=== PATIENT | male | born 1970 | race Hispanic/Latino ===

== ENCOUNTER 2022-11-10 13:46 | Inpatient (IN) | payer OTHER ==
[~2022-11-10] VITALS: Ht 167.6 cm; Wt 84.8 kg
[2022-11-10 14:04] LABS: BASOPHILS % (AUTO) 0.3 % (0.0-5.0); EOSINOPHILS % (AUTO) 0.3 % (0.0-8.0); HEMATOCRIT 45.2 % (42-54); MEAN CORPUSCULAR HEMOGLOBIN 30.7 pg (27.0-33.0); MEAN CORPUSCULAR HGB CONC 34.7 g/dL (32.0-36.0); MEAN CORPUSCULAR VOLUME 88.5 fL (79-99); MONOCYTES % (AUTO) 5.4 % (3.0-13.0); NEUTROPHILS % (AUTO) 83.7 % (40.0-77.0); PLATELET COUNT (AUTO) 218 K/uL (130-400); RED BLOOD CELL COUNT(AUTO) 5.11 MIL/uL (4.50-6.20); RED CELL DISTRIBUTION WIDTH 12.7 % (11.0-15.5); WHITE BLOOD COUNT (AUTO) 11.8 K/uL (4.8-10.8)
[2022-11-10 14:10] LABS: APPEARANCE,URINE CLOUDY (CLEAR); BILIRUBIN,URINE NEGATIVE (NEGATIVE); COLOR,URINE LIGHT-YELLOW (YELLOW); GLUCOSE, URINE (UA) 150 mg/dL (NEGATIVE); KETONES,URINE 5 mg/dL (NEGATIVE); LEUKOCYTE ESTERASE ,URINE NEGATIVE Leu/uL (NEGATIVE); NITRATE,URINE NEGATIVE (NEGATIVE); OCCULT BLOOD,URINE NEGATIVE (NEGATIVE); PH,URINE 7.5 (5.0-8.0); PROTEIN,URINE 10 mg/dL (NEGATIVE); UROBILINOGEN,URINE 0.2 mg/dL (0.2-1.0)
[2022-11-10 14:21] LABS: CREATININE 1.1 mg/dL (0.5-1.5); POTASSIUM 4.1 mmol/L (3.5-5.1)
[2022-11-10 14:26] LABS: ALBUMIN 4.2 g/dL (3.5-5.0); TOTAL PROTEIN, SERUM 7.4 g/dL (6.0-8.3)
[2022-11-10 14:38] LABS: BACTERIA,URINE RARE /HPF (None Seen); MUCUS,URINE RARE LPF (None Seen); RBC,URINE 0-1 /HPF (0-1); SQUAMOUS EPITHELIAL CELL,UR RARE /HPF (0-2); WBC,URINE 0-1 /HPF (0-1)
[2022-11-10] MEDS ORDERED: ONDANSETRON 4MG INJ IVP ONE (15:00)
[2022-11-10] MEDS ORDERED: MORPHINE 4 MG SYG IVP ONE (15:00)
[2022-11-10] MEDS ORDERED: 0.9%NACL 1000ML 1,000 ML IV ONE ×2 (15:00→18:30)
[2022-11-10] MEDS ORDERED: MORPHINE 4 MG SYG IV PRN (18:30)
[2022-11-10] MEDS ORDERED: TAMSULOSIN HCL 0.4 MG CAP.ER.24H PO ONE ×2 (18:30)
[2022-11-10] MEDS ORDERED: ACETAMINOPHEN 325 MG TAB PO PRN ×2 (18:30)
[2022-11-10] MEDS ORDERED: ONDANSETRON 4MG INJ IV PRN (18:30)
[2022-11-10] MEDS ORDERED: PEG 3350/NA SULF,BICARB,CL/KCL 4000 ML SOLN PO ONE (21:00)
[2022-11-10] MEDS: KETOROLAC 10 MG TABLET PO SCH (21:10)
[2022-11-10] MEDS: CEFTRIAXONE 1G VIAL IV SCH (21:11)
[2022-11-10] MEDS: FAMOTIDINE 20MG TAB PO SCH (21:11)
[2022-11-10] MEDS: LACTATED RINGERS 1000ML 1,000 ML IV SCH (21:12)
[2022-11-10] MEDS: MORPHINE 2 MG SYG IV PRN (21:20)
[2022-11-11] VITALS (7 sets, daily range): BP systolic 128–169; BP diastolic 85–99; PULSE 68–83; RESP 17–19; O2SAT 97–99
[2022-11-11] MEDS: KETOROLAC 10 MG TABLET PO SCH ×4 (00:30→18:30)
[2022-11-11] MEDS: MORPHINE 2 MG SYG IV PRN (06:45)
[2022-11-11 07:05] LABS: BASOPHILS % (AUTO) 0.3 % (0.0-5.0); EOSINOPHILS % (AUTO) 0.8 % (0.0-8.0); HEMATOCRIT 40.9 % (42-54); LYMPHOCYTES % (AUTO) 17.5 % (21.0-51.0); MEAN CORPUSCULAR HEMOGLOBIN 31.1 pg (27.0-33.0); MEAN CORPUSCULAR HGB CONC 35.2 g/dL (32.0-36.0); MEAN CORPUSCULAR VOLUME 88.3 fL (79-99); MONOCYTES % (AUTO) 10.2 % (3.0-13.0); NEUTROPHILS % (AUTO) 70.9 % (40.0-77.0); PLATELET COUNT (AUTO) 177 K/uL (130-400); RED BLOOD CELL COUNT(AUTO) 4.63 MIL/uL (4.50-6.20); RED CELL DISTRIBUTION WIDTH 12.8 % (11.0-15.5); WHITE BLOOD COUNT (AUTO) 9.9 K/uL (4.8-10.8)
[2022-11-11 07:20] LABS: CREATININE 1.3 mg/dL (0.5-1.5); MAGNESIUM 1.6 mg/dL (1.80-2.40); PHOSPHORUS 2.6 mg/dL (2.5-4.9); POTASSIUM 3.6 mmol/L (3.5-5.1)
[2022-11-11] MEDS: FAMOTIDINE 20MG TAB PO SCH ×3 (07:27→22:06)
[2022-11-11] MEDS: TAMSULOSIN HCL 0.4 MG CAP.ER.24H PO SCH ×2 (07:27→12:33)
[2022-11-11 07:28] LABS: INR 0.94 (0.85-1.15); PROTHROMBIN TIME 10.9 SEC (9.6-11.6)
[2022-11-11 07:30] LABS: PARTIAL THROMBOPLASTIN TIME 29.5 SEC (26.3-35.5)
[2022-11-11] MEDS ORDERED: MAGNESIUM 2GM PREMIX 50ML 50 ML IV ONE (09:28)
[2022-11-11] MEDS: LACTATED RINGERS 1000ML 1,000 ML IV SCH ×2 (09:34→21:10)
[2022-11-11] MEDS: ENOXAPARIN SODIUM 40 MG/0.4 ML SYRINGE SQ SCH (09:35)
[2022-11-11] MEDS ORDERED: IOHEXOL 350 MG/ML 100ML INFUS..BTL IV ONE (09:39)
[2022-11-11] MEDS ORDERED: MAGNESIUM 2GM PREMIX 50ML 50 ML IV PRN (10:00)
[2022-11-11] MEDS: CEFTRIAXONE 1G VIAL IV SCH (18:30)
[2022-11-12] VITALS (12 sets, daily range): BP systolic 122–163; BP diastolic 76–100; PULSE 60–96; RESP 18; O2SAT 98
[2022-11-12] MEDS: KETOROLAC 10 MG TABLET PO SCH (00:01)
[2022-11-12] MEDS: MORPHINE 2 MG SYG IV PRN (06:02)
[2022-11-12 06:04] LABS: BASOPHILS % (AUTO) 0.3 % (0.0-5.0); HEMATOCRIT 39.8 % (42-54); MEAN CORPUSCULAR HEMOGLOBIN 31.1 pg (27.0-33.0); MEAN CORPUSCULAR HGB CONC 34.4 g/dL (32.0-36.0); MEAN CORPUSCULAR VOLUME 90.5 fL (79-99); MONOCYTES % (AUTO) 9.8 % (3.0-13.0); NEUTROPHILS % (AUTO) 73.4 % (40.0-77.0); PLATELET COUNT (AUTO) 170 K/uL (130-400); RED CELL DISTRIBUTION WIDTH 12.7 % (11.0-15.5); WHITE BLOOD COUNT (AUTO) 10.5 K/uL (4.8-10.8)
[2022-11-12 06:20] LABS: INR 0.93 (0.85-1.15); PROTHROMBIN TIME 10.3 SEC (9.6-11.6)
[2022-11-12 06:38] LABS: ALBUMIN 3.1 g/dL (3.5-5.0); CREATININE 1.4 mg/dL (0.5-1.5); MAGNESIUM 2.1 mg/dL (1.80-2.40); POTASSIUM 3.9 mmol/L (3.5-5.1); TOTAL PROTEIN, SERUM 6.2 g/dL (6.0-8.3)
[2022-11-12] MEDS: TAMSULOSIN HCL 0.4 MG CAP.ER.24H PO SCH (08:22)
[2022-11-12] MEDS: ENOXAPARIN SODIUM 40 MG/0.4 ML SYRINGE SQ SCH ×2 (08:22→09:00)
[2022-11-12] MEDS: FAMOTIDINE 20MG TAB PO SCH (08:22)
[2022-11-12] MEDS ORDERED: TAMS-1 PO (08:25)
[2022-11-12] MEDS ORDERED: LEVO-70 PO (08:26)
[2022-11-12] MEDS ORDERED: FENTANYL CITRATE PF 50 MCG/1 ML 2ML VIAL ONE ×2 (16:13→16:39)
[2022-11-12] MEDS ORDERED: MIDAZOLAM HCL 1 MG/ML 2ML VIAL ONE ×2 (16:13→16:39)
[2022-11-12] MEDS ORDERED: LIDOCAINE HCL 400MG/20ML VIAL ONE (16:13)
[2022-11-12] MEDS ORDERED: IOHEXOL-350 50ML VIAL IV ONE (16:14)
== END 2022-11-12 21:00 | disposition home or self-care (01) | DRG 690 ==
LOC: EDH 13:46 → EDHIP 13:47 → 4CH 11-11 04:12
PROVIDERS: ADMIT Internal Medicine; ATTEND Internal Medicine
PROC: 0T9030Z Drainage of Right Kidney with Drainage Device, Percutaneous Approach (ICD-10-PCS; principal; 2022-11-12)
DX: N13.6 Pyonephrosis (principal); D72.829 Elevated white blood cell count, unspecified; Z20.822 Contact with and (suspected) exposure to COVID-19; Z93.6 Other artificial openings of urinary tract status
CPT/HCPCS: 36415; 50432; 74018; 74176; 74400; 76770; 80048; 80053; 81001; 83735; 84100; 85025; 85610; 85730; 86850; 86900; 86901; 87040; 87071; 87088; 87205; 87635; 93005; 99156; 99157; C1729; C1769; C1894; G0378; J0696; J1644; J1650; J2250; J2270; J2405; J3010; J3475; J3490; J7030; Q9967